=== PATIENT | male | born 1995 | race Caucasian/White ===

== ENCOUNTER 2017-11-18 00:10 | Emergency (ER) | payer OTHER ==
[~2017-11-18] VITALS: Ht 185.4 cm; Wt 113.4 kg
[~2017-11-18 00:10] MED LIST: BENZTROPINE MESY1 M1 PO; RISPERDAL1 M1 PO
--- NOTE | 2017-11-18 00:20 | ED PSYCHIATRIC COMPLAINT ---
History of Present Illness General Chief Complaint: Psychiatric Related Complaint Stated Complaint: EVALUATION Source: patient, old records Exam Limitations: no limitations Vital Signs & Intake/Output Vital Signs & Intake/Output Vital Signs Date Time Temp Pulse Resp B/P B/P Pulse O2 O2 Flow FiO2 Mean Ox Delivery Rate 11/18 0534 96.4 87 18 101/59 98 Room Air 11/18 0100 100 Room Air 11/18 0010 97.0 88 18 127/86 99 Room Air Allergies Coded Allergies: No Known Allergies (11/18/17) Reconcile Medications Benztropine Mesylate 1 MG TABLET 1 MG PO 1000,1999 muscle stiffness Take 1 tab po BID. Risperidone (Risperdal) 1 MG TABLET 3 MG PO DAILY clear thoughts Take 1 tab po daily. Risperidone (Risperdal) 1 MG TABLET 3 MG PO 2000 clear thoughts Take 1 tab po nightly. Triage Nurses Notes Reviewed? yes Onset: Abrupt Duration: day(s): (1), better Timing: recent history Severity: mild Severity Numbers: 1 Associated Symptoms: depression HPI: 22-year-old male presents on PEER- the patient is an inpatient at [facility]-on arrival the patient states that he was depressed and drove off after he found his parents [place]. I spoke with the patient's father he states that the facility granted his family visitation rights and allow the patient to go home during the days from 12 PM to 8 PM. Apparently today the patient found that spare set of keys and drove his car to [place] after his father located his phone by looking at the computer. On arrival patient denies visual or auditory hallucinations. He states being in the [facility] makes him depressed. He denies thoughts Y Dec[place] himself or others. He's been compliant with his medication. He denies alcohol or drug use. (Cosmo Soto) Past History Travel History Traveled to [place] past 21 day No Medical History Any Pertinent Medical History? none Neurological: NONE EENT: NONE Cardiovascular: NONE Respiratory: NONE Gastrointestinal: NONE Hepatic: NONE Renal: NONE Musculoskeletal: NONE Psychiatric: NONE Endocrine: NONE Blood Disorders: NONE Cancer(s): NONE PREVENTION COORDINATOR/Reproductive: NONE History of MRSA: No History of VRE: No History of CDIFF: No Surgical History Surgical History: N Psychosocial History Who do you live with Family Services at Home None What is your primary language Macedonian Family History Hx Contributory? No (Cosmo Soto) Review of Systems Review of Systems Constitutional: Reports: see HPI. Comments Review of systems: See HPI, All other systems negative. Constitutional, no chills no fever, HEENT: no sore throat no congestion Cardiovascular: No chest pain Skin: no rashes, no change in skin Respiratory: No dyspnea no cough no sputum GI: No nausea no vomiting, Muscle skeletal: No joint pain, no back pain Neurologic: , no headache Psych: depression,. Heme/endocrine: No bruising (Cosmo Soto) Physical Exam Physical Exam General Appearance: well developed/nourished, no apparent distress, alert, awake Neurological/Psychiatric: no motor/sensory deficits, awake, alert Comments: Well-developed well-nourished person in no acute distress HEENT: Normal EENT exam; PERRL, EOMI, HEAD is atraumatic. moist mucous membranes. Neck: Supple, normal range of motion Back: Full range of motion Cardiovascular: Regular rate and rhythms no murmur Respiratory: No respiratory distress. Patient speaking in full complete sentences. Breath sounds clear to auscultation bilaterally: NO W/R/R Abdomen: Soft, nontender nondistended Extremity: No edema, full range of motion of extremities Neuro: Alert oriented x3, motor sensory normal. There were no obvious focal neurologic abnormalities. Skin: No appreciable rash on exposed skin, skin is warm and dry. Psych: Mood and affect is normal, memory and judgment is normal. SAD PERSONS Done? patient not suicidal (Cosmo Soto) Progress Differential Diagnosis: drug intoxication, drug overdose, electrolyte abnormality, depression, shchizophrenia Plan of Care: Orders Procedure Date/time Status Regular Diet 11/18 B Active Patient Safety Monitor 11/18 0804 Active URINE DRUG SCREEN FOR ER ONLY 11/19 19 Complete ETHANOL 11/19 19 Complete COMPREHENSIVE METABOLIC PANEL 11/19 19 Complete CBC WITHOUT DIFFERENTIAL 11/19 19 Complete ED CRISIS PSYCH CONSULT 11/19 19 Active Laboratory Tests 11/18/17 0550: Serum Alcohol < 10.0 11/18/17 0550: Anion Gap 14, Estimated GFR > 60, BUN/Creatinine Ratio 13.8, Glucose 90, Calcium 9.3, Total Bilirubin 1.5 H, AST 19, ALT 31, Alkaline Phosphatase 61, Total Protein 6.2 L, Albumin 4.0, Globulin 2.2, Albumin/Globulin Ratio 1.8, CBC w Diff NO MAN DIFF REQ, RBC 5.06, MCV 82.7, MCH 27.6, MCHC 33.3, RDW 14.0, MPV 8.6 , Gran % 56.7, Lymphocytes % 33.2, Monocytes % 8.3, Eosinophils % 1.4, Basophils % 0.4, Absolute Granulocytes 5.1, Absolute Lymphocytes 3.0, Absolute Monocytes 0.7 H, Absolute Eosinophils 0.1, Absolute Basophils 0, Urine Opiates Screen < 100, Methadone Screen < 40, Barbiturate Screen < 60, Ur Phencyclidine Scrn < 6.00, Amphetamines Screen < 100, U Benzodiazepines Scrn < 85, Urine Cocaine Screen < 50, Urine Cannabis Screen < 5.00 Labs ordered old records reviewed. I discussed the patient's father plan of care he is in agreement with plan Case discussed with and signed out to Dr. Terrell at 1 AM pending crisis evaluation (Cosmo Soto) 11/18/2017 7:16:56 AM Patient signed out to [facility] by Dr. Terrell. Pending crisis evaluation and disposition. 8:10 AM PATIENT TO BE TRANSFERRED BACK TO [facility] [place], DR ROSLYN KELLEY ACCEPTING. (Demetria Reyes MD) Hand-Off Endorsed To: Clif Terrell MD Endorsed Time: 0100 Pending: consult (crisis) (Cosmo Soto) Hand-Off Endorsed To: Demetria Reyes MD Endorsed Time: 0700 Pending: consult (Clif Terrell MD) Departure Departure Condition: Stable Clinical Impression Primary Impression: Schizophrenia Referrals: Patient Has No Primary Care Dr (PCP/Family) Departure Forms: Customer Survey General Discharge Information (Cosmo Soto) PA/MATERIALS RECYCLER Co-Sign Statement Statement: ED Attending supervision documentation- [X] I saw and evaluated the patient. I have also reviewed all the pertinent lab results and diagnostic results. I agree with the findings and the plan of care as documented in the PA's/MATERIALS RECYCLER's documentation. [X] I have reviewed the ED Record and agree with the PA's/MATERIALS RECYCLER's documentation. [] Additions or exceptions (if any) to the PAs/MATERIALS RECYCLER's note and plan are summarized below: [] (Clif Terrell MD) Departure Time of Disposition: 808 Disposition: [facility] ([facility]) (Amy CAICEDO,Demetria)
[2017-11-18 06:09] LABS: ABSOLUTE BASOPHIL COUNT 0 /CUMM (0.0-0.2); ABSOLUTE EOSINOPHIL COUNT 0.1 /CUMM (0.0-0.7); ABSOLUTE GRANULOCYTE CT 5.1 /CUMM (1.4-6.5); ABSOLUTE MONOCYTE COUNT 0.7 /CUMM (0.10-0.60); BASOPHIL % 0.4 % (0.0-2.0); EOSINOPHIL % 1.4 % (0-5); GRANULOCYTE % 56.7 % (42.2-75.2); HEMATOCRIT 41.8 % (42-52); MEAN CORPUSCULAR HGB 27.6 PG (27.0-31.0); MEAN CORPUSCULAR HGB CONC 33.3 G/DL (33.0-37.0); MEAN CORPUSCULAR VOLUME 82.7 FL (80.0-94.0); MEAN PLATELET VOLUME 8.6 FL (7.4-10.4); PLATELET COUNT 253 /CUMM (130-400); RED BLOOD CELL CT 5.06 /CUMM (4.70-6.10)
[2017-11-18 08:23] VITALS: BP 108/50
== END 2017-11-18 08:54 | disposition short-term general hospital (02) ==
LOC: ERH 00:10
PROVIDERS: Physician Assistant Medical
DX: F20.9 Schizophrenia, unspecified (principal)
CPT/HCPCS: 80307; G0480